=== PATIENT | female | born 1985 | race Hispanic/Latino ===

== ENCOUNTER 2016-12-01 12:53 | Outpatient (CLI) | payer MEDICAID ==
[2016-12-01 14:54] VITALS: BP 165/92
--- NOTE | 2016-12-02 10:26 | Vascular Lab Report ---
Right Lower Extremity Venous Duplex Study: Reason for Exam: Pain of the right lower extremity. Comments on the Right: All veins visualized are freely compressible without evidence of internal echogenicity. Flow is spontaneous and phasic throughout. No evidence of acute or chronic thrombus is seen in any of the vessels visualized. Comments on the Left: A limited duplex study was done of the proximal veins of the left lower extremity. All veins visualized are freely compressible without evidence of internal echogenicity. Flow is spontaneous and phasic throughout. No evidence of acute or chronic thrombus is seen in any of the vessels visualized. Impression: No evidence of acute or chronic deep venous thrombosis in the right lower extremity.
== END 2016-12-01 16:53 | disposition home or self-care (01) ==
LOC: TRG 12:53
PROVIDERS: ATTEND Obstetrics & Gynecology
DX: O26.893 Other specified pregnancy related conditions, third trimester (principal); M79.661 Pain in right lower leg; M79.89 Other specified soft tissue disorders; O47.03 False labor before 37 completed weeks of gestation, third trimester; Z3A.34 34 weeks gestation of pregnancy

== ENCOUNTER 2019-02-15 21:42 | Emergency (ER) | payer SELFPAY ==
[2019-02-15 21:50] VITALS: BP 158/113
--- NOTE | 2019-02-15 21:50 | Emergency Department Report ---
Blank Doc - Documentation Documentation: 33-year-old female that presents with acute on chronic intermittent the headac hes. Denies any trauma or worst headache. HX of migrane headaches and symptoms are similar. This initial assessment/diagnostic orders/clinical plan/treatment(s) is/are subject to change based on patient's health status, clinical progression and re- assessment by fellow clinical providers in the ED. Further treatment and workup at subsequent clinical providers discretion. Patient/guardians urged not to elope from the ED as their condition may be serious if not clinically assessed and managed. Initial orders include: 1- Patient sent to [facility] for further evaluation and treatment
== END 2019-02-15 22:45 | disposition left against medical advice (07) ==
LOC: ED 21:42
DX: R51 Headache (principal); R11.0 Nausea; Z53.21 Procedure and treatment not carried out due to patient leaving prior to being seen by health care provider